=== PATIENT | male | born 1990 | race Caucasian/White ===

== ENCOUNTER 2016-12-02 17:09 | Emergency (ER) | payer SELFPAY | END 2016-12-02 18:32 | disposition home or self-care (01) | LOC: D.ER 17:09 | DX: Z20.2 Contact with and (suspected) exposure to infections with a predominantly sexual mode of transmission (principal); R36.9 Urethral discharge, unspecified; M79.602 Pain in left arm; M79.601 Pain in right arm; L29.9 Pruritus, unspecified; F17.200 Nicotine dependence, unspecified, uncomplicated ==

== ENCOUNTER 2016-12-13 07:49 | Emergency (ER) | payer SELFPAY | END 2016-12-13 09:16 | disposition home or self-care (01) | LOC: D.ER 07:49 | DX: S39.012A Strain of muscle, fascia and tendon of lower back, initial encounter (principal); X58.XXXA Exposure to other specified factors, initial encounter; Y93.89 Activity, other specified; Y92.89 Other specified places as the place of occurrence of the external cause; L73.9 Follicular disorder, unspecified; F17.200 Nicotine dependence, unspecified, uncomplicated ==